=== PATIENT | male | born 1985 | race Caucasian/White ===

== ENCOUNTER 2025-01-31 18:39 | Emergency (ER) | payer SELFPAY ==
[~2025-01-31] VITALS: Ht 182.9 cm; Wt 82.0 kg
[2025-01-31 18:43] VITALS: O2SAT 98
[2025-01-31 20:14] LABS: BASOPHILS % 0.3 % (0.0-2.0); EOSINOPHILS % 1.4 % (0.0-5.0); HEMATOCRIT. 45.0 % (42.0-52.0); HEMOGLOBIN. 15.7 g/dL (14.0-18.0); LYMPHOCYTES % 15.8 % (20.0-50.0); MEAN PLATELET VOLUME 8.8 fl (7.4-10.4); MONOCYTES % 7.8 % (2.0-8.0); NEUTROPHILS % 74.7 % (40.0-76.0); PLATELET 239 x1000/uL (130-400); RED BLOOD CELL COUNT 5.00 mill/uL (4.7-6.1); RED CELL DISTRIBUTION WIDTH 13.8 % (11.6-14.6)
[2025-01-31 20:29] LABS: CREATININE 0.7 mg/dL (0.6-1.3)
[2025-01-31 20:30] LABS: UREA NITROGEN BLOOD 8 mg/dL (9-23)
[2025-01-31 21:12] VITALS: BP 130/78; PULSE 69; RESP 16; TEMP 36.9; O2SAT 97
== END 2025-02-01 00:12 | disposition home or self-care (01) ==
LOC: ER 18:39 → CMPBEDREQ 02-01 07:17
DX: S03.03XA Dislocation of jaw, bilateral, initial encounter (principal); F17.200 Nicotine dependence, unspecified, uncomplicated; X58.XXXA Exposure to other specified factors, initial encounter; Y93.89 Activity, other specified; Y92.89 Other specified places as the place of occurrence of the external cause; Y99.8 Other external cause status
CPT/HCPCS: 80048; 85025; 36415; 70450; 93005; 99284; Z7610